=== PATIENT | female | born 1995 | race Caucasian/White ===

== ENCOUNTER 2017-07-25 03:10 | Emergency (ER) | payer OTHER ==
[~2017-07-25] VITALS: Ht 167.6 cm; Wt 70.0 kg
[2017-07-25 03:15] VITALS: BP 146/76; PULSE 94; RESP 16; TEMP 98; O2SAT 97
--- NOTE | 2017-07-25 03:23 | PD ---
HPI Chief Complaint: Alcohol/Drug Intoxication Time Seen by Provider: 03:20 Travel History International Travel<30 days: No Contact w/Intl Traveler<30days: No Traveled to known affect area: No History of Present Illness HPI 21-year-old woman, brought to the emergency department by EMS after friends called because she drank too much and "would not wake up". Patient endorses heavy alcohol use tonight. Denies any illicit drugs. Denies any trauma. Denies any complaints at this time. EMS reports initially she was unresponsive on scene but became more responsive in route. History Past Medical History Medical History: Denies Significant Hx LMP: 2 WEEKS AGO Past Surgical History Surgical History: No Previous Surgery Social History Alcohol Use: Yes Tobacco Use: No Allergies-Medications (Allergen,Severity, Reaction): Coded Allergies: No Known Allergies (Unverified , 07/25/17) Review of Systems ROS Limitations: Intoxication Except as stated in HPI: all other systems reviewed are Neg Physical Exam Exam Limitations: Intoxication Narrative GENERAL: Well-appearing 21-year-old woman, disheveled and intoxicated, no acute distress. SKIN: Warm and dry. Head: No evidence of trauma. Neck: Moves neck freely. No evidence of trauma. CARDIOVASCULAR: Warm and well perfused. RESPIRATORY: Normal rate and effort. MUSCULOSKELETAL: No evidence of trauma. No deformities. NEUROLOGICAL: Awake and alert. No gross deficits. Slurred speech. Some sluggish responsiveness. Able to wake up and answer questions appropriately. Data Data Last Documented VS Vital Signs Date Time Temp Pulse Resp B/P (MAP) Pulse Ox O2 Delivery O2 Flow Rate FiO2 07/25/17 03:15 98.0 94 16 146/76 (99) 97 MDM Medical Decision Making Medical Screen Exam Complete: Yes Emergency Medical Condition: Yes Differential Diagnosis Intoxication, occult injury, illicit drug use, other Narrative Course Medical decision making 21-year-old woman is awake and talking now. She has no complaints. Denies any trauma or illicit drug use. Will monitor in the emergency department, discharge in the a.m. Diagnosis Primary Impression: Alcohol intoxication Patient Instructions: General Instructions Additional Instructions: Avoid heavy alcohol use. Return to the emergency department for any new or worsening symptoms. Med/Other Pt SpecificInfo: No Change to Meds Disposition: 01 DISCHARGE HOME Condition: Stable Jorge Leyva MD Jul 25, 2017 03:23
[2017-07-25 07:39] VITALS: BP 118/65
== END 2017-07-25 07:41 | disposition home or self-care (01) ==
LOC: NEPE 03:10
DX: F10.129 Alcohol abuse with intoxication, unspecified (principal)
CPT/HCPCS: 99281